=== PATIENT | male | born 1985 | race Caucasian/White ===

== ENCOUNTER 2017-02-28 14:33 | Emergency (ER) | payer OTHER ==
--- NOTE | ~2017-02-28 | EKG ---
PATIENT: NISH PAULSON UNIT #: [id number] Ventricular Rate: 71 BPM Atrial Rate: 71 BPM P-R Interval: 166 ms QRS Duration: 108 ms Q-T Interval: 410 ms QTC Calculation(Bezet): 445 ms P [place]: 54 degrees Calculated R [place]: 42 degrees Calculated T [place]: 58 degrees Diagnosis Line: Normal sinus rhythm with sinus arrhythmia Diagnosis Line: Normal ECG Diagnosis Line: No previous ECGs available Diagnosis Line: Confirmed by JERRY DORAN MD ([id number]) on Diagnosis Line: 03/04/2017 9:01:09 AM INTERPRETING MD: ANDREEA PRESLEY
--- NOTE | ~2017-02-28 | CR72 ---
[facility]. [facility] A Service of [facility] & [facility] RADIOLOGY TEXT RESULTS PATIENT: NISH PAULSON LOCATION: SED : 81 UNIT #: [id number] AGE: [address]: Walter Shay MD SEX: M ORDER DR: [id number] [address] [address] [id number] MR#: [id number] Acc #: [id number] NAME: NISH PAULSON : 1985 SEX: M STUDY DATE/TIME: 02/28/2017 15:25 UNIT: SED ROOM: STUDY DESCRIPTION: CR Chest Single View Portable Attending Physician: Walter Shay M.D. Ordering Physician: Walter Shay M.D. Primary Care Physician: Shine Lino M.D. MEDICAL IMAGING REPORT This report is preliminary unless electronic signature is present. EXAM Portable chest, 02/28/2017 HISTORY Chest pain with difficulty breathing today. FINDINGS A single AP portable view of the chest shows both lungs to be clear. The heart is normal in size. The mediastinal contour is normal. No significant bone abnormalities are seen. IMPRESSION Normal portable chest. Dictated by... Roly Mello M.D. THIS IS AN ELECTRONICALLY VERIFIED REPORT Roly Mello M.D. at 03/01/2017 2:11 PM DILIP/ollie TD: 03/01/2017 09:03 JOB #: [id number] MEDICAL IMAGING REPORT Page 1 of 1
[~2017-02-28 14:33] MED LIST: BACTRIM DS TABL1 TA2 PO; ERYTHROMYCIN O3.5 G1 OD; FLEXERIL10 MG PO; IBUPROFEN800 MG PO; KEFLEX PO; KETOPROFEN PO; LORTAB 10-5001 EACH PO; METHOCARBAMOL500 MG PO; NEURONTIN; NO MEDICATIONS; PEN-VEE K PO; SEROQUEL XR50 MG PO; TRAZODONE; TYLENOL #3 PO; ULTRAM PO; VICODIN 5/500 T1 TAB PO; VICODIN PO; VISCOUS LIDOCAINE PO; VOLTAREN50 MG PO; VOLTAREN75 MG PO
[2017-02-28] MEDS ORDERED: NO MEDICATIONS (14:42)
== END 2017-02-28 17:08 | disposition left against medical advice (07) ==
LOC: SED 14:33
DX: R06.02 Shortness of breath (principal); F19.10 Other psychoactive substance abuse, uncomplicated; F31.9 Bipolar disorder, unspecified; F20.9 Schizophrenia, unspecified; F90.9 Attention-deficit hyperactivity disorder, unspecified type; F17.200 Nicotine dependence, unspecified, uncomplicated; Z86.19 Personal history of other infectious and parasitic diseases; Z98.890 Other specified postprocedural states
CPT/HCPCS: 71010; 93005; 94640; 99285